=== PATIENT | male | born 1990 ===

== ENCOUNTER 2019-05-22 12:37 | Emergency (ER) | payer SELFPAY ==
[~2019-05-22] VITALS: Ht 195.6 cm; Wt 127.0 kg
[2019-05-22 15:23] VITALS: BP 119/54
== END 2019-05-22 15:27 | disposition home or self-care (01) ==
LOC: ER 12:37
DX: J02.9 Acute pharyngitis, unspecified (principal)
CPT/HCPCS: 99283